=== PATIENT | female | born 1990 | race Caucasian/White ===

== ENCOUNTER → 2019-11-08 06:57 | Outpatient (CLI) | payer BC, SELFPAY ==
[2019-11-08 07:50] LABS: Glucose 75GTT - Fasting 94 mg/dL (70-99)
[2019-11-08 08:00] LABS: Estradiol 66.4 pg/mL; Follicle Stimulating Hormone 3.2 mIU/mL; Prolactin 18.1 ng/mL; T4 Free Direct 0.92 ng/dL (0.76-1.46); Thyroid Stim Hormone (TSH) 4.36 uIU/mL (0.358-3.74)
[2019-11-08 08:18] LABS: T3 Total - Triiodothyronine 1.29 ng/mL (0.6-1.81); Vitamin D,25 Hydroxy 17.7 ng/mL (29.95-100.01)
[2019-11-08 08:25] LABS: Glucose 75GTT - 30 minutes 143 mg/dL (100-160)
[2019-11-08 08:47] LABS: Glucose 75GTT - 60 minutes 187 mg/dL (100-160)
[2019-11-08 09:15] LABS: Insulin 75GTT - Fasting 13.9 mU/L (2.6-37.6)
[2019-11-08 09:15] LABS: Insulin 75GTT - 30 MIN 109.6 mU/L (Not Estab.)
[2019-11-08 09:39] LABS: Insulin 75GTT - 60 min 164.2 mU/L (Not Estab)
[2019-11-08 10:05] LABS: Glucose 75GTT - 120 minutes 133 mg/dL (70-140)
[2019-11-08 12:37] LABS: Insulin 75GTT - 120 min 159.5 mU/L (Not Estab.)
[2019-11-09 10:23] LABS: Progesterone Level 1.08 ng/mL (See Comment)
[2019-11-09 16:22] LABS: Luteinizing Hormone 5.2 mIU/mL
[2019-11-10 17:48] LABS: 17-Hydroxyprogesterone 50 ng/dL (.)
[2019-11-10 17:49] LABS: Thyroglobulin Antibody < 1.0 IU/mL (0.0-0.9); Thyroid Peroxidase AB 8 IU/mL (0-34)
[2019-11-15 10:19] LABS: Anti-Mullerian Hormone,Serum 1.84 ng/mL (.)
== END ==
PROVIDERS: Family Provider Nurse Practitioner Primary Care; PCP Nurse Practitioner Primary Care; Referring Provider Obstetrics & Gynecology; Visit Provider Obstetrics & Gynecology
DX: N91.2 Amenorrhea, unspecified (principal); E03.9 Hypothyroidism, unspecified; N97.9 Female infertility, unspecified; R73.09 Other abnormal glucose
CPT/HCPCS: 36415; 82306; 82533; 82627; 82670; 82951; 82952; 83001; 83002; 83498; 83516; 83525; 83615; 84144; 84146; 84270; 84403; 84439; 84443; 84480; 86376; 86800; 82626

== ENCOUNTER → 2019-11-14 07:52 | Outpatient (CLI) | payer BC, SELFPAY ==
[2019-11-14 08:32] LABS: Estradiol 42.1 pg/mL; Follicle Stimulating Hormone 5.1 mIU/mL
[2019-11-15 09:51] LABS: DHEA Sulfate 241.2 ug/dL (84.8-378.0)
== END ==
LOC: LAB.FUTURE 07:53 → LAB 07:57
PROVIDERS: Family Provider Nurse Practitioner Primary Care; PCP Nurse Practitioner Primary Care; Referring Provider Nurse Practitioner Primary Care; Visit Provider Obstetrics & Gynecology
DX: N91.1 Secondary amenorrhea (principal)
CPT/HCPCS: 36415; 82533; 82627; 82670; 83001; 84403; 82626

== ENCOUNTER → 2019-11-17 11:42 | Outpatient (CLI) | payer BC, SELFPAY ==
--- NOTE | 2019-11-17 11:44 | RAD_ITS ---
STUDY: HYSTEROSALPINGOGRAM. REASON FOR EXAM: Female, 29 years old. INFERTILITY FLUOROSCOPY TIME (if supplied): ( 32 seconds ) minutes/seconds TECHNIQUE: A hysterosalpingogram was performed by the job developer for deaf adults. Imaging was obtained. COMPARISON: None. FINDINGS: The uterus is unremarkable. The left fallopian tube is patent with free spill. The right fallopian tube is not visualized. RAD/Salpingogram IMPRESSION: The left fallopian tube is patent with free spill. Nonvisualization of the right fallopian tube. Electronically Signed: Josue Sommers, at 15:01 EST , Service support ,
== END ==
PROVIDERS: Family Provider Nurse Practitioner Primary Care; PCP Nurse Practitioner Primary Care; Referring Provider Obstetrics & Gynecology; Visit Provider Obstetrics & Gynecology
DX: N97.9 Female infertility, unspecified (principal)
CPT/HCPCS: 58340; 74740; Q9967

== ENCOUNTER → 2019-12-13 11:46 | Outpatient (CLI) | payer BC, SELFPAY | PROVIDERS: PCP Nurse Practitioner Primary Care; Referring Provider Obstetrics & Gynecology; Visit Provider Obstetrics & Gynecology | DX: Z12.4 Encounter for screening for malignant neoplasm of cervix (principal) ==

== ENCOUNTER → 2020-09-03 10:32 | Outpatient (CLI) | payer BC, SELFPAY | PROVIDERS: PCP Nurse Practitioner Primary Care; Referring Provider Obstetrics & Gynecology; Visit Provider Obstetrics & Gynecology | DX: Z20.828 Contact with and (suspected) exposure to other viral communicable diseases (principal) | CPT/HCPCS: 87635; C9803; U0003 ==

== ENCOUNTER → 2020-09-12 17:08 | Outpatient (CLI) | payer BC, SELFPAY ==
[2020-09-12 17:51] LABS: Color, Urine Yellow (Yellow); Glucose, Dipstick Normal (Normal); Ketone-Dipstick Negative (Negative); Leukocyte Esterase-Dipstick 100 /ul (Negative); Nitrite-Dipstick Negative (Negative); Occult Blood-Urine Negative /ul (Negative); Protein-Dipstick 15 mg/dl (Negative); Urine Bilirubin Dipstick Negative (Negative); Urine Clarity Sl. Cloudy (Clear); Urine Urobilinogen Normal (Normal)
[2020-09-12 17:52] LABS: Absolute Lymphocyte Count 2.18 X10^3/uL (0.83-4.51); Absolute Neutrophil Count 6.1 X10^3/uL (2.0-7.7); Basophil# 0.04 X10^3/uL; Basophil% 0.4 % (0-1); Eosinophil# 0.14 X10^3/uL; Eosinophils% 1.5 % (0-5); Hematocrit 40.8 % (37-47); Hemoglobin 13.5 g/dL (12.0-15.0); Lymphocyte # 2.18 X10^3/ul (4.0); Mean Corp Hgb Conc 33.1 g/dL (32-36); Mean Corpuscular Hgb 29.7 pg (27.0-32.0); Mean Corpuscular Volume 89.9 fL (81-99); Mean Platelet Vol. 10.4 fl (6.2-12.0); Monocyte# 0.54 X10^3/uL; Monocyte% 5.9 % (0-10); NRBC Flagged by Analyzer 0 % (0-5); Neutrophil # 6.14 X10^3/uL (2.7-7.7); Neutrophil % 67.8 % (47-70); Platelet Count 332 K/mm3 (150-450); RBC Distribution Width CV 11.7 % (11.6-14.6); RBC Distribution Width SD 37.9 fl (35.1-43.9); Red Blood Count 4.54 M/mm3 (4.2-5.4); White Blood Count 9.1 K/mm3 (4.4-11.0)
[2020-09-12 18:14] LABS: Hemoglobin A1c 5.2 % (3.8-5.6)
[2020-09-12 18:33] LABS: Amphetamine Urine VISTA NEGATIVE (<1000 ng/mL); Barbiturate Urine VISTA NEGATIVE (< 200 ng/mL); Benzodiazepine Urine VISTA NEGATIVE (< 200 ng/mL); Cocaine Urine VISTA NEGATIVE (< 300 ng/mL); Ecstacy Urine VISTA POSITIVE (< 500 ng/mL); Methadone Urine VISTA NEGATIVE (< 300 ng/mL); PCP Urine VISTA NEGATIVE (< 25 ng/mL); THC Urine VISTA NEGATIVE (< 50 ng/mL); Vista UDS pH Range 5
[2020-09-12 19:06] LABS: Free T3 2.4 pg/mL (2.18-3.98); T4 Free Direct 1.07 ng/dL (0.76-1.46); Thyroid Stim Hormone (TSH) 1.86 uIU/mL (0.358-3.74)
[2020-09-13 01:21] LABS: Prenatal RPR NONREACTIVE (NONREACTIVE)
[2020-09-13 11:13] LABS: HIV - WCH Non-Reactive (Nonreactive); Hepatitis B Surface Antigen Non-Reactive (Nonreactive); Hepatitis C Antibody Non-Reactive (Nonreactive); Progesterone Level 11.94 ng/mL (See Comment); Rubella IgG Reactive (Nonreactive); Vitamin D,25 Hydroxy 21.1 ng/mL
[2020-09-13 16:46] LABS: Estradiol 481.1 pg/mL
[2020-09-13 16:53] LABS: hCG Titer Quant., Serum 24742 mIU/mL (1-3)
[2020-09-15 03:06] LABS: Chlamydia By Nucleic Acid AMP Negative (Negative)
[2020-09-17 04:35] LABS: Gonococcus By Nucleic Acid AMP Negative (Negative)
== END ==
PROVIDERS: PCP Nurse Practitioner Primary Care; Visit Provider Obstetrics & Gynecology
DX: Z11.3 Encounter for screening for infections with a predominantly sexual mode of transmission (principal); O26.891 Other specified pregnancy related conditions, first trimester; E55.9 Vitamin D deficiency, unspecified; Z3A.00 Weeks of gestation of pregnancy not specified
CPT/HCPCS: 36415; 80307; 81002; 82306; 82670; 83036; 84144; 84439; 84443; 84481; 84702; 85025; 86703; 86762; 86803; 87340; 87491; 87591

== ENCOUNTER → 2020-11-14 16:42 | Outpatient (CLI) | payer BC, SELFPAY ==
[2020-11-22 14:07] LABS: CF, Screen Comment: (.)
== END ==
PROVIDERS: PCP Nurse Practitioner Primary Care; Visit Provider Obstetrics & Gynecology
DX: Z34.82 Encounter for supervision of other normal pregnancy, second trimester (principal)
CPT/HCPCS: 36415; 81220

== ENCOUNTER → 2021-01-21 10:27 | Outpatient (CLI) | payer BC, SELFPAY ==
--- NOTE | 2021-01-21 10:35 | US_ITS ---
STUDY: ULTRASOUND BREAST - RIGHT REASON FOR EXAM: Female, 31 years old. Palpable lump in the right axillary region of the breast. TECHNIQUE: Axial and longitudinal images of the RIGHT breast were performed with a high resolution ultrasound transducer. # OF IMAGES: 54 COMPARISON: None. FINDINGS: RIGHT Breast: The right axilla in the tail of the right breast was examined by ultrasound. No sonographic abnormality is seen. US/Breast Limited Unilateral IMPRESSION: No sonographic abnormality is seen. ASSESSMENT CATEGORY: BIRADS Category 1: Negative. A letter regarding these results will be sent to the patient by the facility within 30 days. Electronically Signed: Josue Sommers MD at 12:12 EDT , Service support ,
== END ==
PROVIDERS: PCP Nurse Practitioner Primary Care; Referring Provider Student in an Organized Health Care Education/Training Program; Visit Provider Student in an Organized Health Care Education/Training Program
DX: O26.892 Other specified pregnancy related conditions, second trimester (principal); N63.31 Unspecified lump in axillary tail of the right breast; Z3A.24 24 weeks gestation of pregnancy
CPT/HCPCS: 76642

== ENCOUNTER → 2021-02-12 15:47 | Outpatient (CLI) | payer BC, SELFPAY ==
[2021-02-12 16:11] LABS: Hematocrit 35.6 % (37-47); Hemoglobin 12.1 g/dL (12.0-15.0); Mean Corpuscular Hgb 30.3 pg (27.0-32.0); Mean Platelet Vol. 10.3 fl (6.2-12.0); Platelet Count 256 K/mm3 (150-450); RBC Distribution Width CV 13.2 % (11.6-14.6); RBC Distribution Width SD 42.6 fl (35.1-43.9); White Blood Count 9.3 K/mm3 (4.4-11.0)
[2021-02-12 16:43] LABS: Glucose Challenge Gest 1H 50g 107 mg/dL (70-140); T4 Free Direct 0.86 ng/dL (0.76-1.46); Thyroid Stim Hormone (TSH) 1.32 uIU/mL (0.358-3.74)
== END ==
PROVIDERS: PCP Nurse Practitioner Primary Care; Visit Provider Student in an Organized Health Care Education/Training Program
DX: Z34.83 Encounter for supervision of other normal pregnancy, third trimester (principal)
CPT/HCPCS: 36415; 82950; 84439; 84443; 85027

== ENCOUNTER → 2021-04-10 12:29 | Outpatient (CLI) | payer BC, SELFPAY | PROVIDERS: PCP Nurse Practitioner Primary Care; Visit Provider Obstetrics & Gynecology | DX: Z36.85 Encounter for antenatal screening for Streptococcus B (principal) | CPT/HCPCS: 87081 ==

== ENCOUNTER 2021-05-06 07:20 | Inpatient (IN) | payer BC, SELFPAY ==
[2021-05-06] VITALS (52 sets, daily range): BP systolic 106–164; BP diastolic 54–89; PULSE 51–114; TEMP 35.7–37.4; O2SAT 94–100; BMI 39.1
[2021-05-06] MEDS: Lactated Ringers 1,000 ML 50 ML IV (07:35)
[2021-05-06 07:45] LABS: Absolute Lymphocyte Count 1.54 X10^3/uL (0.83-4.51); Basophil# 0.02 X10^3/uL; Basophil% 0.2 % (0-1); Eosinophil# 0.05 X10^3/uL; Eosinophils% 0.5 % (0-5); Hemoglobin 13.1 g/dL (12.0-15.0); Lymphocyte # 1.54 X10^3/ul (0.83-4.51); Lymphocyte % 16.8 % (19-41); Mean Corp Hgb Conc 33.6 g/dL (32-36); Mean Corpuscular Hgb 29.4 pg (27.0-32.0); Mean Corpuscular Volume 87.4 fL (81-99); Mean Platelet Vol. 10.8 fl (6.2-12.0); Monocyte# 0.54 X10^3/uL; Monocyte% 5.9 % (0-10); NRBC Flagged by Analyzer 0 % (0-5); Neutrophil # 6.97 X10^3/uL (2.7-7.7); Neutrophil % 76.2 % (47-70); Platelet Count 253 K/mm3 (150-450); RBC Distribution Width CV 12.9 % (11.6-14.6); Red Blood Count 4.46 M/mm3 (4.2-5.4); White Blood Count 9.2 K/mm3 (4.4-11.0)
--- NOTE | 2021-05-06 07:51 | PCM.PN.BLA ---
Progress Note ACOG ANTEPARTUM RECORD - HISTORY AND PHYSICAL (05/06/2021) Name: MELI HICKS History of this : This is a 31 year old who presents at 40 wks + 1 days gestation. OB Physician: Jillian Flood MD [place]'s Physician: UNDECIDED ...................................................................... : 1990 Age: 31 Address: [address] [place] [address] Phone: H) [phone]) [phone] Insurance Carrier: [employer] [facility] [id number] Emergency Contact: JOSE MANUEL HICKS [phone] ...................................................................... Final WU: 05/05/21 By Ultrasound: 10 weeks 3 days PARITY: (G-Total Pregnancies P-Fullterm,Premature,Induced AB,Spont AB, Ectopics, Multiple,Living) WU CONFIRMATION: By LMP: 07/14/20 Initial Exam: 05/05/21 By First Ultrasound Exam: 05/04/21 Final WU: 05/05/21 OB PROBLEM LIST: 10/2020 - GI US - biliary sludge and gallstone Allergic to Zyrtec and Cortisone cream ( rash/hives) Anxiety with past treatment. EPDS on 09/12/2020 = 8. Breast feeding and epidural planned; office childbirth and breast feeding classes enc Environmental allergies Hx of UTI's Hypothyroidism Intermittent auscultation Low Vitamin D - rpt at 28wga Wants to have genetic and carrier screens drawn ALLERGIES: Hydrocortisone Hives and/or rash Zyrtec Rash MEDICATIONS: aspirin 81 mg chewable tablet 1 PO QD Claritin 10 mg tablet 1daily PRN levothyroxine 50 mcg tablet One pill by mouth once a day metformin ER 750 mg tablet,extended release 24 hr 2 tabs PO once daily Formula-DHA 28 mg-800 mcg- 200 mg capsule 1 PO QD Tylenol Extra Strength 500 mg tablet 1 PO QD PRN Vitamin C 500 mg tablet 1 tab po daily Vitamin D3 125 mcg (5,000 unit) tablet 1 tab po daily zinc 50 mg tablet 1 PO QD SOCIAL HISTORY: Smoking - used to smoke but quit and 2011 Alcohol Use - denies drinking Diet - needs improvement Lifestyle - moderate stress lifestyle and Exercise - regular 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 Drug Use - denies use of street drugs Sexual Activity - Residence - lives with Place of - [place], [place] Spouse-Sig Other Name - Jose Manuel Spouse-Sig Other Occupation - Diana/[employer] Spouse-Sig Other Phone No - [phone] PRIOR DELIVERY HISTORY DEL DATE GEST LAB WT LB WT OZ TYPE ANES LABOR TX ANTEPARTUM FLOW CHART VISIT GE RTC FU F F FL U U DATE WK MD WKS HT PN HR M SS BP ED WT FL GL D EF ST __ ____ ___ __ __ ___ __ __ __ ___ __ __ __ ___ __ 30 Apr 39 SHM 1 39 V +_ + 120/82 sl 215 tr ne Apr 38 SHM 1 38 V + + 114/82 sl 214 - - Apr 37 SHM 1 37 V + + 130/82 sl 215 tr - 09 Apr 36 SHM 1 36 V + + 110/72 1+ 210 - - 29 March 34 SHM 2 34 ? + + 110/78 sl 209 tr - 15 March 32 SHM 2 32 V + + 130/78 sl 207 tr - 27 Jan 30 CM 2 30 + + 114/80 1+ 205 - - Jan 28 CM 2 26 + + 108/66 sl 203 tr ne 16 Dec 24 CM 4 24 + + 118/72 0 196 - - Dec 22 JMW 4 20 + + 126/74 0 197 - - Nov 16 SHM 4 16 + ? 110/70 0 193 - - Oct 11 SHM 5 + US 100/64 0 194 - - ANTEPARTUM NOTE(S): May 01 2021: Apr 24 2021: groin pain, questions Apr 19 2021: see note Apr 10 2021: see note Mar 29 2021: hip pain Mar 15 2021: see note Feb 26 2021: Feb 12 2021: GCT/labs today Jan 15 2021: Dec 19 2020: Sono Today,Good FM Nov 14 2020: Oct 10 2020: COMPREHENSIVE ANTEPARTUM NOTE(S): May 01 2021: Meli is here for PNV. Although tired she states she is feeling pretty good. Having good FM. Continues to wear support stockings. No edema in hands but noticed slight in lower legs. Over last few days has had some ctx that seemed stronger than BH. No LOF or discharge. Urine tr/neg. LSS Apr 24 2021: Meli is here for a PNV at 38 weeks. Good FM. SL edema in ankles and feet, consistent use of compression socks. Pt reports occasional ctx's, notices them mostly at night before bed. Groin pain w/ standing up. Denies back pain/pelvic pressure. Would like to go over birthing plan, copies given. Interested in discussing vitamin regimen for , plans to exclusively breast feed baby. Declin Apr 24 2021: plan reviewed and discussed. Apr 19 2021: Meli is here for visit. More uncomfortable, groin pain occ. Reviewed FM, SROM, and labor. GBS negative. LMT Apr 19 2021: Had her baby shower last weekend. she is uncomfortable but doing well overall. Reviewed neg GBS. Discussed EFM vs. intermittent ausculatation - r/b each, pt desires intermittent auscultation. Apr 15 2021: H taken to OB. tkg Apr 10 2021: Meli reports that she is more uncomfortable, edema by the end of the day, achy in hip area, and had a couple episodes of diarrhea in the last couple days. No other sx noted. GBS today, LARC declined. Reviewed FM, SROM, and labor. LMT Apr 10 2021: Suspect OP, check position at next visit. Recommend Spinning Babies exercises. GBS obtained, reviewed indications. Mar 15 2021: Meli is here for visit. Reports compression stockings have helped with edema and got a spacer for her wedding ring. She plans Tdap tomorrow after childbirth class. Reviewed PTL and FM. Reports that she had a pinch injury in R leg with some residual numbness for about a day, just reporting this as now is resolved. LMT Mar 15 2021: PTL, ROM, FM precautions. Reviewed support persons in labor. Mother with assist x 1 week at home, then the 2 weeks after that. Has [place] for infant and room ready. Plans , completed class. Feb 26 2021: Meli is here for visit at 30.2w. Baby active. Shins robin noted to have 1+ edema. None in fingers- took wedding band off as it was loose. Sits all day at work. Tries to move around some and has ordered support hose. VIVIEN. Feb 26 2021: 30/2w visit. Discussed compression socks, weight gain in . Subclinical hypothyroidism. F/u 2w CM Feb 12 2021: Meli is here for PNV. GCT/labs today including thyroid studies. Feeling uncomfortable. Having good FM. Slight edema noted in ankles. Urine tr/neg. LSS Feb 12 2021: 28/2w visit. DIscussed TDap COVID vaccine. Subclinical hypothyroidism - labs drawn. Allergies - discussed rhinitis. Will change med. Cannot take zyrtec or mary. Aware that specific studies have not been done on aternative. F/u 2w. CM Jan 15 2021: Glucola bottle and instructions given to be drawn next visit. Reminded about TDap vaccine -- she would like to discuss further w/Dr. Gianna Paul. Good FM. Overall feeling tired every day. 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 Concerned w/ a webb mccormack sized lump R upper inner Axilla, which she notes every day in the shower, other times, she can Jan 15 2021: 24/2w visit. Recheck thyroid labs with glucola. Axillary nodule - nonpalpable but more noticeable to pt. Will get axilla US. F/u 4w. CM Nov 28 2020: SMA mutation and CF carrier screening neg Nov 14 2020: Meli is her for 15 + 3 PNV. Reports she may have had FM but not sure. No edema present today. She c/o hip pain that wakes her up at night and when exercising. She took Tylenol extra strength last night that helped. Also c/o upper abdominal pain, US showed gallstones. She is wanting to know if constipation could cause her upper abdominal pain. States she has small circular pink suzanne on both breas Nov 14 2020: Discussed aneuploidy screening r/b/limitations, as well as CF, SMA carrier screening and MSAFP. Will obtain all today. Discussed movement, musculoskeletal discomforts of and exercises to ameliorate these as pt c/o hip flexor discomfort and pain. post acute care nurse ok. Pt notes Sneak Esteban reveals a boy. Discussed circ. Pt considering. Oct 11 2020: TELEHEALTH NOB VISIT, 55 MINUTE DURATION. Meli is a 30 year old with an WU of 05/05/2021, current GA is 10 w 4 d. She resides with her , Jose Manuel, and she states that they are both happy with the . She plans to deliver at [facility] with a likely epidural, and she will breast feed. Office breast feeding and childbirth classes discussed and encouraged. 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 She had US today. Reports that she is tired and doing fine. No edema present today. She c/o breast tenderness to where she has to wear a bra to bed. She has constipation and bloating but does not use anything for it as it passes in a few days. She has motion sickness and has to drive when riding in the car. Expressed interest in gender testing. No other com Oct 10 2020: Atiya is here with her Jose Manuel. Discussed travel in . Recommend maternity or nursing bra for reduce breast pain associated with movement and tenderness. Reviewed labs. Maintain current dose of Synthroid. Low Vitamin D, pt started 5000 IU daily D3. Will continue. Discussed COVID19 prevention strategies and limitations of current studies in . Reviewed current trends REVIEW OF SYSTEMS: GENERAL - Denies fever, or chills SKIN - Denies rash, new skin lesions, or change in moles EYES - Denies blurred vision, or change in visual acuity EARS - Denies ear pain, or difficulty hearing NOSE - Denies nasal congestion, discharge, or bleeding MOUTH - Denies sore throat, or difficulty swallowing NECK - Denies pain or swelling RESPIRATORY - Denies shortness of breath, cough, wheezing CARDIOVASCULAR - Denies palpitations, chest pain, orthopnea, PND, peripheral edema, syncope or claudication GASTROINTESTINAL - Denies nausea, vomiting, diarrhea, constipation, Denies abdominal pain, melena and or bright red blood GENITOURINARY - Denies dysuria, frequency of urination, urgency, or hesitancy MUSCULOSKELETAL - Denies joint or muscle pain, or back pain NEUROLOGICAL - Denies localized numbness, weakness, or tingling PSYCHIATRIC - Denies depression, anxiety, substance abuse or suicide attempts ENDOCRINE - Denies heat or cold intolerance, weight loss or gain, increasing thirst HEMATO-IMMUNOLOGIC - Denies easy bruising, bleeding, oral ulcerations or recurrent infections GENETICS SCREENING: Age 35+ years: No Thalassemia: No Neural Tube Defect: No Down Syndrome: No KALINA-SACHS: No Sickle Cell Disease: No Hemophilia: No Musc. Dystrophy: No Cystic Fibrosis: No-declines screening Paulette Chorea: No Mental Retardation: No Fragile X: No Other genetic: No Other defects: No SABs/still births: No Drugs since LMP: No INFECTION HISTORY: High risk AIDS: No High risk Hepatitis: No Exposed to TB: No Exposed to Herpes: No Rash/viral illness since LMP: No History of STD: No MENSTRUAL HISTORY: *Menses Amount/Duration: 4-5 DAYSMenses Regularity: IrregularFrequency: 25-45Menarche (Age Onset): 12* PAST SUMMARY: PARITY: 1. Total Pregnancies............ 1 2. Full Term Pregnancies........ 0 3. Premature.................... 0 4. Abortions - Induced.......... 0 5. Abortions - Spontaneous...... 0 6. Ectopics..................... 0 7. Multiple Births.............. 0 8. Living Children.............. 0 PHYSICAL EXAMINATION General Appearence: 31 yo female in no acute distress Vital Signs: AF, VSS Heart: RRR without rubs or gallops Lungs: CTA x 2 Breasts: deferred Abdomen: gravid Pelvis: Cervix: 4/70/-2 per RN exam Presentation: cephalic Fetus: Size: AGA Movement: present Heart: 120, moderate variabiltiy, + accelerations, no decelerations TOCO 3/10 min Impression /Plan: 40 wks + 1 days intrauterine in labor, Cat I FHR Expectant management
[2021-05-06] MEDS: fentaNYL 100 MCG/2 ML Ampul IV ×3 (09:43→14:20)
[2021-05-06] MEDS: 0.9% Saline Lock 10 ML Syringe IV ×4 (09:44→15:06)
--- NOTE | 2021-05-06 11:15 | PCM.PN.BLA ---
Progress Note Subjective: Patient seen and examined, uncomfortable with contractions. Desires to go natural. Otherwise asymptomatic and doing well. Physical exam: Vital signs: Blood pressure 132/75 pulse of 67 General: Mild distress with contractions HEENT: Normocephaly atraumatic Cardiac/respiratory: No use of accessory muscles, nonlabored breathing Abdomen: Gravid, nontender Pelvic exam: Cervical exam 6 cm, 70% effaced, -1 station Extremities: No peripheral edema normal peripheral pulses Psych: Normal affect normal demeanor nonpressured speech Assessment plan: 31 old G1, P0 at 40 weeks and 1 day arrived in labor, will continue expectant management. Discussed AROM, at this time patient would like expectant management but considering.
--- NOTE | 2021-05-06 11:39 | PCM.PN.BLA ---
Progress Note Subjective: Patient still uncomfortable with contractions. Desires to go natural. Physical exam: General: Mild distress with contractions HEENT: Normocephalic atraumatic Cardiac/respiratory: No use of accessory muscles nonlabored breathing Pelvic exam: Cervical exam unchanged AROM for blood-tinged fluid Extremities: No peripheral edema normal peripheral pulses Psych: Normal affect normal demeanor nonpressured speech Assessment plan: Patient seen and examined uncomfortable with contractions desires to go natural. AROM for blood-tinged fluid. We will continue expectant management.
[2021-05-06] MEDS: Lactated Ringers 500 ML 999 ML IV ×2 (15:06→16:11)
[2021-05-06] MEDS: fentaNYL-bupivacaine (epidural) 100 ML BAG EPIDURAL ×2 (16:12→21:34)
[2021-05-06] MEDS: Oxytocin 30 units/NS 500 ml 30 UNITS/500 ML IV.SOLN IV (18:06)
[2021-05-06] MEDS: Lactated Ringers 1,000 ML 200 ML IV (21:34)
[2021-05-06] MEDS: Oxytocin 30 units/NS 500 ml 30 UNITS/500 ML IV.SOLN 334 UNITS IV (23:08)
--- NOTE | 2021-05-06 23:24 | EX.PCM.OBRPT ---
Vaginal Delivery Findings Description of Procedure: Normal spontaneous vaginal delivery of a viable male , vertex BENJAMÍN. Head and shoulders delivered with ease. Thick meconium, baby handed to treasury management sales consultant. Placenta was delivered via cord traction and fundal massage. Second-degree midline perineal laceration noted and repaired in typical fashion. EBL 250 cc Apgars 7/9
[2021-05-07] VITALS (16 sets, daily range): BP systolic 88–121; BP diastolic 42–81; PULSE 73–86; RESP 16–18; TEMP 36.2–37.2; O2SAT 95–97
[2021-05-07] MEDS: Ibuprofen 600 MG Tablet PO ×3 (05:50→20:31)
[2021-05-07] MEDS: Levothyroxine 50 MCG Tablet PO (05:59)
--- NOTE | 2021-05-07 08:02 | PCM.PN.OB ---
Subjective Subjective No overnight complaints. Pain well controlled. Objective Data Objective Data Vital Signs: Vital Signs Temp Pulse Resp BP Pulse Ox 99.0 F 77 16 115/63 95 05/07/21 05:30 05/07/21 05:30 05/07/21 05:30 05/07/21 05:30 05/07/21 01:20 Oxygen Delivery Method Room Air Weight: 221 lb Body Mass Index (BMI) 39.1 Intake & Output: Intake and Output for Last 24 Hours 05/05/21 05/06/21 05/07/21 23:59 23:59 23:59 Intake Total 3811.60 / 3811.60 327.43 / 327.43 Output Total 750 / 750 1800 / 1800 Balance 3061.60 / 3061.60 -1472.57 / -1472.57 Lab / Micro Data Result Diagrams: 05/06/21 07:35 Labs: Laboratory Results - last 24 hr 05/06/21 07:35 Blood Type A POSITIVE Antibody Screen NEGATIVE Micro: Microbiology 05/06/21 07:55 Mucosa - Nose SARS-CoV-2 Antigen (Rapid) - Final Physical Exam Const alert, oriented x3, no apparent distress and average body habitus HEENT normocephalic and moist oral mucous membranes Head and Scalp: atraumatic Face and Sinus: normal facial exam Neck full ROM Resp normal respiratory effort, no retractions and no use of accessory muscles GI normal to inspection, nondistended, normoactive bowel sounds GI Narrative: Uterus firm and below umbilicus Extremity normal to inspection, full ROM and no clubbing, cyanosis or edema Skin no rashes or lesions noted Psych mental status grossly normal, affect normal, speech normal and activity/motor behavior normal Assessment & Plan (1) : PLAN: day 1 status post . Breast-feeding, to see consultants. Baby with hypoglycemia, to see surveying or spatial science technician. Likely discharge home tomorrow
[2021-05-07] MEDS: Acetaminophen 500 MG Tablet 1000 MG PO (22:37)
[2021-05-08] MEDS: Ibuprofen 600 MG Tablet PO ×2 (05:14→12:43)
[2021-05-08] MEDS: Levothyroxine 50 MCG Tablet PO (05:14)
[2021-05-08 05:20] VITALS: BP 106/71; PULSE 62; RESP 16; TEMP 36.6
--- NOTE | 2021-05-08 06:50 | PCM.PN.OB ---
Subjective Subjective No issues overnight. Patient is out of bed and ambulating and voiding without difficulty. She had a bowel movement. Reports soreness at site of perineal repair. She is breast-feeding and using the nipple shield. Denies heavy lochia. Objective Data Objective Data Vital Signs: Vital Signs Temp Pulse Resp BP Pulse Ox 97.9 F 62 16 106/71 95 05/08/21 05:20 05/08/21 05:20 05/08/21 05:20 05/08/21 05:20 05/07/21 01:20 Oxygen Delivery Method Room Air Weight: 100.244 kg Body Mass Index (BMI) 39.1 Intake & Output: Intake and Output for Last 24 Hours 05/06/21 05/07/21 05/08/21 23:59 23:59 23:59 Intake Total 3811.60 / 3811.60 327.43 / 327.43 Output Total 750 / 750 1800 / 1800 Balance 3061.60 / 3061.60 -1472.57 / -1472.57 Lab / Micro Data Result Diagrams: 05/06/21 07:35 Micro: Microbiology 05/06/21 07:55 Mucosa - Nose SARS-CoV-2 Antigen (Rapid) - Final Physical Exam Const alert, oriented x3 and no apparent distress Resp normal respiratory effort and normal air movement Cardio regular rate, regular rhythm, S1 normal heart sound and S2 normal heart sound Uterus Palpation: uterus fundus firm and other OB fundus nontender Extremity no calf tenderness Extremity Narrative: Trace lower extremity edema, patient maintains compression stockings. Neuro oriented x3 Assessment & Plan (1) (spontaneous vaginal delivery): COMMENT: day #2 PLAN: A positive, rubella immune, RPR nonreactive, hep B surface antigen negative, HIV negative, hep CV negative Breast-feeding Routine care Plan for DC later today
--- NOTE | 2021-05-08 06:55 | DCINST_ITS ---
Discharge Instructions Diet Discharge Diet: No restrictions Activity Discharge Activity: Return to Normal Activity May resume sexual activity in: 4-6 weeks Dressing / Incision Call your doctor if you observe: Using more than 1 pad per hour, Shortness of breath, Chest pain, Calf discomfort, Uncontrolled pain and - (Persistent or severe headache) Follow Up Care Please Follow Up With: Jillian Flood MD When: 3 weeks for telehealth follow up 6 weeks for visit Test Results: Test results from this visit will be discussed in further detail at your follow-up appointment, if applicable. Discharge Plan Admission Admit Date/Time: 05/06/21 07:20 Primary Reason for Your Visit: Vaginal delivery Attending Provider: Jillian Gramajo Primary Care Provider: Candelaria Petit NP Instructions Patient Instructions: After a Vaginal , Incision Care After Vaginal , Understanding Depression Additional Instructions / Restrictions: Avoid sitting on donut shaped cushions. Discharge Orders/Prescriptions Prescriptions: New ibuprofen 600 mg Tablet 600 mg PO Q8H PRN PRN (Reason: Pain) Qty: 30 RF: 0 Continued levothyroxine 50 mcg Tablet 50 mcg PO DAILY RF: 0 Complete 14 mg iron- 400 mcg Tablet PO DAILY RF: 0 ascorbic acid (vitamin C) [Vitamin C] 500 mg Tablet 500 mg PO DAILY RF: 0 ergocalciferol (vitamin D2) 25,000 unit Capsule 5,000 unit PO DAILY RF: 0 zinc 50 mg Capsule 50 mg PO DAILY RF: 0 Claritin-D 12 Hour 5-120 mg Tablet Extended Release 12 Hr 2 tab PO Q12H RF: 0 Discontinued metformin 1,000 mg Tablet Extended Release 24hr 1,500 mg PO DAILY RF: 0 aspirin 81 mg Tablet 81 mg PO DAILY RF: 0 Referrals / Follow Up: Candelaria Petit NP, [facility] [Primary Care Provider] - Disposition Disposition (needs filled in before D/C Order can be placed): Home, Self Care
[2021-05-08 08:20] VITALS: BP 114/62; PULSE 57; RESP 16; TEMP 36.6
[2021-05-08] MEDS: Acetaminophen 500 MG Tablet 1000 MG PO (09:23)
[2021-05-08 14:15] VITALS: BP 137/70; PULSE 73; RESP 16; TEMP 36.7
--- NOTE | 2021-05-15 16:48 | NURSING ---
left voicemail for follow up call no answer.
== END 2021-05-08 16:15 | disposition home or self-care (01) | DRG 807 ==
LOC: WPOUT 07:30 → WP 07:30
PROVIDERS: Admitting Provider Obstetrics & Gynecology; PCP Nurse Practitioner Primary Care; Referring Provider Obstetrics & Gynecology; Visit Provider Obstetrics & Gynecology
DX: O77.0 Labor and delivery complicated by meconium in amniotic fluid (principal); Z37.0 Single live birth; O70.1 Second degree perineal laceration during delivery; Z3A.40 40 weeks gestation of pregnancy
CPT/HCPCS: 59025; 59050; 76815; 85025; 86850; 86900; 86901; 87426; 99218; J7120; A4216; G0378

== ENCOUNTER → 2021-05-16 16:43 | Outpatient (CLI) | payer BC, SELFPAY ==
[2021-05-06 06:42] VITALS: BMI 39.1
== END ==
PROVIDERS: PCP Nurse Practitioner Primary Care; Referring Provider Obstetrics & Gynecology; Visit Provider Obstetrics & Gynecology
DX: R30.0 Dysuria (principal)
CPT/HCPCS: 87086; 87088

== ENCOUNTER → 2021-09-10 10:52 | Outpatient (CLI) | payer BC, SELFPAY ==
[2021-09-10 11:28] LABS: Hemoglobin A1c 5.1 % (3.8-5.6)
[2021-09-10 11:53] LABS: Insulin 8.3 mU/L (2.6-37.6)
[2021-09-10 11:57] LABS: Free T3 2.8 pg/mL (2.18-3.98); Glucose 88 mg/dL (74-106); T4 Free Direct 0.83 ng/dL (0.76-1.46); Thyroid Stim Hormone (TSH) 2.03 uIU/mL (0.358-3.74)
== END ==
PROVIDERS: PCP Nurse Practitioner Primary Care; Visit Provider Obstetrics & Gynecology
DX: E03.9 Hypothyroidism, unspecified (principal); E55.9 Vitamin D deficiency, unspecified; R73.09 Other abnormal glucose
CPT/HCPCS: 36415; 82306; 82947; 83036; 83525; 84439; 84443; 84481

== ENCOUNTER → 2021-09-20 10:37 | Outpatient (CLI) | payer BC, SELFPAY ==
[2021-09-20 11:54] LABS: ALB/GLOB Ratio 0.9 RATIO (0.9-2.4); AST(SGOT) 169 U/L (15-37); Alanine Aminotransfer ALT/SGPT 525 U/L (13-56); Albumin, Serum 3.7 g/dL (3.2-5.0); Alkaline Phosphatase 368 U/L (45-117); Anion Gap 6 (5-15); BUN 8 mg/dL (7-18); BUN/Creat Ratio 10.7 RATIO (10-20); Calcium,Total 9.7 mg/dL (8.5-10.1); Chloride 109 mmol/L (98-107); Creatinine, Serum 0.75 mg/dL (0.55-1.02); EST Glomerular Filtration Rate 96 mL/min (>60); Est Glom Filt Rate - Afr Amer 116 mL/min (>60); Glucose 104 mg/dL (74-106); Potassium 3.8 mmol/L (3.5-5.1); Protein, Total 7.7 g/dL (6.4-8.2); Sodium Level 142 mmol/L (136-145)
== END ==
PROVIDERS: PCP Nurse Practitioner Primary Care
DX: R10.9 Unspecified abdominal pain (principal); E66.9 Obesity, unspecified; K80.10 Calculus of gallbladder with chronic cholecystitis without obstruction; R74.01 Elevation of levels of liver transaminase levels
CPT/HCPCS: 36415; 80053

== ENCOUNTER → 2022-05-23 | Outpatient (CLI) | payer BC, SELFPAY ==
[2022-05-23 12:51] LABS: Free T3 2.4 pg/mL (2.18-3.98); T4 Free Direct 0.83 ng/dL (0.76-1.46); Thyroid Stim Hormone (TSH) 2.64 uIU/mL (0.358-3.74)
== END | disposition home or self-care (01) ==
LOC: WOBLAB 11:04
PROVIDERS: PCP Nurse Practitioner Primary Care; Visit Provider Student in an Organized Health Care Education/Training Program
DX: N91.1 Secondary amenorrhea (principal)
CPT/HCPCS: 36415; 84439; 84443; 84481

== ENCOUNTER → 2022-11-26 | Outpatient (CLI) | payer BC, SELFPAY ==
[2022-12-05 21:25] LABS: HPV APTIMA, High Risk Negative (Negative)
== END | disposition home or self-care (01) ==
PROVIDERS: PCP Nurse Practitioner Primary Care; Visit Provider Student in an Organized Health Care Education/Training Program
DX: Z01.419 Encounter for gynecological examination (general) (routine) without abnormal findings (principal); Z11.4 Encounter for screening for human immunodeficiency virus [HIV]
CPT/HCPCS: 87624; 88175; G0145

== ENCOUNTER → 2022-12-30 | Outpatient (CLI) | payer BC, SELFPAY ==
[2022-12-30 12:28] LABS: Absolute Lymphocyte Count 1.75 X10^3/uL (0.83-4.51); Absolute Neutrophil Count 4.6 X10^3/uL (2.0-7.7); Basophil# 0.03 X10^3/uL; Basophil% 0.4 % (0-1); Eosinophil# 0.13 X10^3/uL; Eosinophils% 1.9 % (0-5); Hematocrit 39.1 % (37-47); Hemoglobin 12.9 g/dL (12.0-15.0); Lymphocyte # 1.75 X10^3/ul (0.83-4.51); Mean Corpuscular Hgb 29.8 pg (27.0-32.0); Mean Corpuscular Volume 90.3 fL (81-99); Mean Platelet Vol. 10.9 fl (6.2-12.0); Monocyte# 0.48 X10^3/uL; Monocyte% 6.9 % (0-10); NRBC Flagged by Analyzer 0 % (0-5); Neutrophil # 4.59 X10^3/uL (2.7-7.7); Neutrophil % 65.5 % (47-70); Platelet Count 269 K/mm3 (150-450); RBC Distribution Width SD 39.7 fl (35.1-43.9); Red Blood Count 4.33 M/mm3 (4.2-5.4)
[2022-12-30 13:00] LABS: HIV - WCH Non-Reactive (Nonreactive); Hepatitis B Surface Antigen Non-Reactive (Nonreactive); Hepatitis C Antibody Non-Reactive (Nonreactive); Rubella IgG Reactive (Nonreactive); Syphilis Antibodies Non-reactive
[2022-12-31 19:50] LABS: V-Zoster IgG (Immunity) 3961 index (Immune >165)
== END | disposition home or self-care (01) ==
LOC: WOBLAB 10:47
PROVIDERS: PCP Nurse Practitioner Primary Care; Visit Provider Student in an Organized Health Care Education/Training Program
DX: Z34.81 Encounter for supervision of other normal pregnancy, first trimester (principal)
CPT/HCPCS: 36415; 85025; 86703; 86762; 86780; 86787; 86803; 87086; 87088; 87340

== ENCOUNTER → 2023-01-27 | Outpatient (CLI) | payer BC, SELFPAY ==
[2023-01-27 10:28] LABS: Glucose Challenge Gest 1H 50g 152 mg/dL (70-140)
== END | disposition home or self-care (01) ==
PROVIDERS: PCP Nurse Practitioner Primary Care; Visit Provider Student in an Organized Health Care Education/Training Program
DX: Z34.81 Encounter for supervision of other normal pregnancy, first trimester (principal)
CPT/HCPCS: 36415; 82950

== ENCOUNTER → 2023-02-04 | Outpatient (CLI) | payer BC, SELFPAY ==
[2023-02-04 09:29] LABS: Glucose GTT-Gestation. Fasting 86 mg/dL (<105)
[2023-02-04 10:59] LABS: Glucose GTT-Gestational 1 Hr 158 mg/dL (<190)
[2023-02-04 12:27] LABS: Glucose GTT-Gestational 2 Hr 118 mg/dL (<165)
[2023-02-04 12:27] LABS: Glucose GTT-Gestational 3 Hr 81 L (<145)
== END | disposition home or self-care (01) ==
LOC: WOBLAB 08:44
PROVIDERS: PCP Nurse Practitioner Primary Care; Visit Provider Student in an Organized Health Care Education/Training Program
DX: Z34.81 Encounter for supervision of other normal pregnancy, first trimester (principal)
CPT/HCPCS: 36415; 82951; 82952

== ENCOUNTER → 2023-05-01 | Outpatient (CLI) | payer BC, SELFPAY ==
[2023-05-01 10:17] LABS: Glucose GTT-Gestation. Fasting 71 mg/dL (<105)
[2023-05-01 10:18] LABS: Glucose GTT-Gestational 1 Hr 157 mg/dL (<190)
[2023-05-01 11:49] LABS: Glucose GTT-Gestational 2 Hr 131 mg/dL (<165)
[2023-05-01 13:32] LABS: Glucose GTT-Gestational 3 Hr 88 L (<145)
== END | disposition home or self-care (01) ==
PROVIDERS: PCP Nurse Practitioner Primary Care; Visit Provider Student in an Organized Health Care Education/Training Program
DX: Z34.83 Encounter for supervision of other normal pregnancy, third trimester (principal)
CPT/HCPCS: 36415; 82951; 82952

== ENCOUNTER 2023-08-19 23:02 | Inpatient (IN) | payer BC, SELFPAY ==
[2023-08-19 22:46] VITALS: BP 112/78; PULSE 77; BMI 38.7
[2023-08-19 22:47] VITALS: TEMP 36.8
[2023-08-19 23:28] LABS: Absolute Lymphocyte Count 1.96 X10^3/uL (0.83-4.51); Basophil# 0.03 X10^3/uL; Basophil% 0.3 % (0-1); Eosinophil# 0.08 X10^3/uL; Eosinophils% 0.9 % (0-5); Hematocrit 40.4 % (37-47); Hemoglobin 12.8 g/dL (12.0-15.0); Lymphocyte # 1.96 X10^3/ul (0.83-4.51); Lymphocyte % 22.7 % (19-41); Mean Corp Hgb Conc 31.7 g/dL (32-36); Mean Corpuscular Hgb 29.8 pg (27.0-32.0); Mean Platelet Vol. 10.3 fl (6.2-12.0); Monocyte# 0.53 X10^3/uL; Monocyte% 6.1 % (0-10); NRBC Flagged by Analyzer 0 % (0-5); Neutrophil # 5.99 X10^3/uL (2.7-7.7); Neutrophil % 69.3 % (47-70); Platelet Count 236 K/mm3 (150-450); RBC Distribution Width CV 13.5 % (11.6-14.6); RBC Distribution Width SD 46.2 fl (35.1-43.9); White Blood Count 8.7 K/mm3 (4.4-11.0)
[2023-08-19 23:50] LABS: ROM Internal Control Test YES-OK TO RESULT pt. (Internal QC)
[2023-08-19 23:51] LABS: ROM Patient Test POSITIVE (Negative); Record Kit Lot#, ROM+ K1409
[2023-08-20] VITALS (43 sets, daily range): BP systolic 85–128; BP diastolic 46–73; PULSE 64–179; RESP 14–18; TEMP 36.2–36.9; O2SAT 98–100
[2023-08-20] MEDS: Lactated Ringers 1,000 ML 50 ML IV (00:05)
[2023-08-20] MEDS: LACTATED RINGERS 500 ML 999 ML IV ×2 (00:05→00:58)
[2023-08-20 00:53] LABS: Syphilis Antibodies Non-reactive
[2023-08-20] MEDS: fentaNYL-bupivacaine (epidural) 100 ML BAG EPIDURAL (02:25)
[2023-08-20] MEDS: Lactated Ringers 1,000 ML 200 ML IV (04:51)
--- NOTE | 2023-08-20 05:47 | PCM.HP.OB ---
HPI - General General Date of Admission: 08/19/23 Date of Service: 08/20/23 Chief Complaint: labor HPI Narrative HALEY HICKS, is a 33 F who presents in labor. uncomplicated to date Maternal Data Information Final WU: 08/14/23 Gestational age: 40 6/7 PFSH [facility] Medical History (Updated 08/20/23 @ 05:[address] Ashley Amezquita MD) Anxiety depression Thyroid disorder Home Medications ascorbic acid (vitamin C) 500 mg tablet (Vitamin C) 500 mg PO DAILY supplement 05/06/21 [History Last Taken 05/05/21] ergocalciferol (vitamin D2) 25,000 unit capsule 5,000 unit PO DAILY supplement 05/06/21 [History Last Taken 05/05/21] levothyroxine 50 mcg tablet 50 mcg PO DAILY hypothyroid 05/06/21 [History Last Taken 05/06/21] loratadine 5 mg-pseudoephedrine ER 120 mg tablet,extended release,12hr (Claritin-D 12 Hour) 2 tab PO Q12H 1 05/06/21 [History Last Taken 05/05/21] vits,calcium 21-iron fum 14 mg iron-folic acid 400 mcg tablet ( Complete) tab PO DAILY supplement 05/06/21 [History Last Taken 05/05/21] zinc 50 mg capsule 50 mg PO DAILY supplement 05/06/21 [History Last Taken 05/05/21] ibuprofen 600 mg tablet 600 mg PO Q8H PRN PRN Pain #30 tabs 05/08/21 [Rx Last Taken Unknown] Allergy/AdvReac Type Severity Reaction Status Date / Time cetirizine [From [facility]] Allergy Hives Verified 05/06/21 06:43 Surgical History History of surgery Social History Smoking Status: Never smoker History Elective abortions Hx Para 1 Spontaneous abortions Hx # Term Pregnancies Ectopic pregnancies Hx # Pregnancies Multiple births # of living children ROS Constitutional Constitutional: Denies fatigue, fever(s) or malaise Eyes Eyes: Denies change in vision ENT HEENT: Denies dizziness or headache(s) Cardiovascular Cardiovascular: Denies chest pain, dyspnea or lightheadedness Respiratory/Chest Respiratory/Chest: Denies cough or dyspnea Gastrointestinal Gastrointestinal: Denies change in bowel habits Genitourinary Genitourinary: Denies burning urination or genital lesions Integumentary Integumentary: Denies rash Neurologic Neurologic: Denies confusion, dizziness, headache(s), numbness or weakness Vital Signs Vital Signs Vital Signs: 08/19/23 22:46 08/19/23 22:46 08/19/23 22:47 Temperature Temperature Source Temporal Pulse Rate 77 Blood Pressure 112/78 BP Systolic 112 BP Diastolic 78 Pulse Ox 08/19/23 22:47 08/20/23 00:05 08/20/23 00:05 Temperature 98.2 F Temperature Source Pulse Rate 75 Blood Pressure 119/70 BP Systolic 119 BP Diastolic 70 Pulse Ox 08/20/23 00:08 08/20/23 00:08 08/20/23 01:48 Temperature 97.9 F Temperature Source Temporal Pulse Rate 93 Blood Pressure BP Systolic BP Diastolic Pulse Ox 08/20/23 01:48 08/20/23 01:53 08/20/23 01:53 Temperature Temperature Source Pulse Rate 84 Blood Pressure BP Systolic BP Diastolic Pulse Ox 100 99 08/20/23 01:58 08/20/23 01:58 08/20/23 02:03 Temperature Temperature Source Pulse Rate 99 89 Blood Pressure BP Systolic BP Diastolic Pulse Ox 100 08/20/23 02:03 08/20/23 02:08 08/20/23 02:08 Temperature Temperature Source Pulse Rate 82 Blood Pressure BP Systolic BP Diastolic Pulse Ox 100 100 08/20/23 02:11 08/20/23 02:11 08/20/23 02:13 Temperature Temperature Source Pulse Rate 83 82 Blood Pressure 128/71 H BP Systolic 128 BP Diastolic 71 Pulse Ox 08/20/23 02:13 08/20/23 02:15 08/20/23 02:15 Temperature Temperature Source Pulse Rate 86 Blood Pressure 119/67 BP Systolic 119 BP Diastolic 67 Pulse Ox 99 08/20/23 02:20 08/20/23 02:20 08/20/23 02:20 Temperature Temperature Source Pulse Rate 86 86 Blood Pressure 114/66 BP Systolic 114 BP Diastolic 66 Pulse Ox 08/20/23 02:20 08/20/23 02:15 08/20/23 02:15 Temperature 98.2 F Temperature Source Temporal Pulse Rate Blood Pressure BP Systolic BP Diastolic Pulse Ox 98 08/20/23 02:25 08/20/23 02:25 08/20/23 02:25 Temperature Temperature Source Pulse Rate 93 78 Blood Pressure 115/69 BP Systolic 115 BP Diastolic 69 Pulse Ox 08/20/23 02:25 08/20/23 02:30 08/20/23 02:30 Temperature Temperature Source Pulse Rate 88 Blood Pressure BP Systolic BP Diastolic Pulse Ox 98 98 08/20/23 02:31 08/20/23 02:31 08/20/23 02:34 Temperature Temperature Source Pulse Rate 85 Blood Pressure 119/70 121/66 H BP Systolic 119 121 BP Diastolic 70 66 Pulse Ox 08/20/23 02:34 08/20/23 02:35 08/20/23 02:35 Temperature Temperature Source Pulse Rate 89 79 Blood Pressure BP Systolic BP Diastolic Pulse Ox 99 08/20/23 02:40 08/20/23 02:40 08/20/23 02:45 Temperature Temperature Source Pulse Rate 179 H Blood Pressure 121/70 H 117/67 BP Systolic 121 117 BP Diastolic 70 67 Pulse Ox 08/20/23 02:45 08/20/23 02:50 08/20/23 02:50 Temperature Temperature Source Pulse Rate 98 65 Blood Pressure 116/67 BP Systolic 116 BP Diastolic 67 Pulse Ox 08/20/23 02:56 08/20/23 02:56 08/20/23 02:56 Temperature Temperature Source Pulse Rate 80 Blood Pressure 85/46 L 94/56 L BP Systolic 85 94 BP Diastolic 46 56 Pulse Ox 08/20/23 02:56 08/20/23 03:00 08/20/23 03:00 Temperature Temperature Source Pulse Rate 87 71 Blood Pressure 96/55 L BP Systolic 96 BP Diastolic 55 Pulse Ox 08/20/23 03:05 08/20/23 03:05 08/20/23 03:08 Temperature Temperature Source Temporal Pulse Rate 77 Blood Pressure 110/68 BP Systolic 110 BP Diastolic 68 Pulse Ox 08/20/23 03:08 08/20/23 03:59 08/20/23 04:01 Temperature 97.1 F L Temperature Source Temporal Pulse Rate Blood Pressure 112/59 L BP Systolic 112 BP Diastolic 59 Pulse Ox 08/20/23 04:01 08/20/23 03:59 08/20/23 05:18 Temperature 97.6 F L Temperature Source Pulse Rate 93 111 H Blood Pressure BP Systolic BP Diastolic Pulse Ox 08/20/23 05:18 08/20/23 05:23 08/20/23 05:23 Temperature Temperature Source Pulse Rate 94 Blood Pressure BP Systolic BP Diastolic Pulse Ox 100 100 08/20/23 05:28 08/20/23 05:28 08/20/23 05:33 Temperature Temperature Source Pulse Rate 118 H 117 H Blood Pressure BP Systolic BP Diastolic Pulse Ox 100 08/20/23 05:33 08/20/23 05:38 08/20/23 05:38 Temperature Temperature Source Pulse Rate 116 H Blood Pressure BP Systolic BP Diastolic Pulse Ox 100 100 Weight Weight: 99.337 kg Body Mass Index (BMI) 38.7 Physical Exam Const alert and no apparent distress General Appearance: cooperative HEENT normocephalic Resp normal respiratory effort Cardio regular rate GI soft to palpation GI Narrative: gravid, nontender, appropriate for gestational age Extremity no calf tenderness General Extremity: edema Skin no wounds Rashes: No rashes noted Psych activity/motor behavior normal Labs Labs Labs: Blood Type A POSITIVE Antibody Screen NEGATIVE Hct 40.4 % (37-47) Hgb 12.8 g/dL (12.0-15.0) Syphilis Total Ab Non-reactive VZV IgG Antibody 3961 index (Immune >165) Rubella IgG Antibody Reactive (Nonreactive) Hep Bs Antigen Non-Reactive (Nonreactive) Hepatitis C Antibody Non-Reactive (Nonreactive) Chlamydia DNA (KEYONNA) Negative (Negative) N.gonorrhoeae DNA (KEYONNA) Negative (Negative) HIV 1&2 Antibody Non-Reactive (Nonreactive) Glucose 1 Hr 50 gm 152 mg/dL (70-140) H Gest Glucose Tolerance MG/DL Rhogam given: No Miscellaneous Test Assessment & Plan (1) 40 weeks gestation of : PLAN: Spontaneousl labor. Estimated weight is less than 4500 g and pelvic is clinically adequate to expect vaginal delivery. May have routine pain control measures prn
[2023-08-20] MEDS: Oxytocin 10 UNITS/ML Vial IM (06:15)
[2023-08-20] MEDS: Oxytocin 15 Units/NS 250ml 15 UNITS/250 ML IV.SOLN 83 UNITS IV (06:20)
--- NOTE | 2023-08-20 06:20 | EX.PCM.OBRPT ---
Assessment & Plan (1) (spontaneous vaginal delivery): COMMENT: day #2 Maternal Data Information Final WU: 08/14/23 Gestational age: 40 6/7 Vaginal Delivery Maternal Presentation Maternal Presentation: Active Labor and Spontaneous Rupture of Membranes Operative Information Date of Procedure: 08/20/23 Pre-Operative Diagnosis: Post-Operative Diagnosis: Surgery / Procedure Performed: Spontaneous Vaginal Delivery Type of Anesthesia: Epidural Special Medications: none Drain: - (none) Estimated Blood Loss: 200 Fluids Replaced: 200 Time of Delivery: 06:09 Findings Description of Procedure: A vigorous female infant was delivered JOSÉ over a second-degree perineal laceration. There was a tight nuchal cord and when I attempted deliver through the bolus. It was quickly clamped and the was quickly delivered. The remainder the infant was delivered with maternal pushing and gentle traction only in less than 15 seconds. The cord was quickly clamped on the . The Pitocin infusion was initiated for active management of the third stage. The infant was attended to by the waiting nursing staff. The placenta was delivered spontaneously and intact. The cervix and vagina were intact. The second-degree perineal laceration was repaired with 3-0 Vicryl suture in a running standard fashion. Sponge and needle counts were correct. A vaginal sweep was completed by me. Presentation: JOSÉ Amniotic Membrane Rupture Type: Spontaneous Amniotic Fluid Description: Clear Placental Delivery Description: Spontaneous Placenta Disposition: [facility] Cord Vessel Description: 3 Vessels Cord Entanglement: Around neck x 1, tight Nuchal Cord Compression: With compression Cord Gases: ABG and VBG A Gender: Female (Bharati) (1 minute): 8 (5 minute): 9 Delayed Cord Clamping: No Post Vaginal Delivery Medications Given After Delivery: IV Pitocin Episiotomy Description: None Laceration: 2nd degree Complication Complications: None
[2023-08-20] MEDS: Ibuprofen 600 MG Tablet PO ×2 (13:49→19:59)
[2023-08-20] MEDS: Benzocaine/Lanolin/Aloe Vera 1 SPRAY EACH TOPICAL (20:01)
[2023-08-21 00:55] VITALS: BP 114/73; PULSE 68; RESP 18; TEMP 36.4
[2023-08-21 05:00] VITALS: BP 110/68; PULSE 85; RESP 16; TEMP 36.2
[2023-08-21] MEDS: Ibuprofen 600 MG Tablet PO (06:47)
[2023-08-21 08:48] VITALS: BP 111/66; PULSE 75; RESP 16; TEMP 36.1; O2SAT 98
[2023-08-21] MEDS: Acetaminophen 500 MG Tablet 1000 MG PO (09:11)
--- NOTE | 2023-08-21 11:36 | PN.OBGYN_ITS ---
Subjective Subjective Pain well controlled. Average lochia Objective Data Objective Data Vital Signs: Vital Signs Temp Pulse Resp BP Pulse Ox O2 Del Method 97.0 F L 75 16 111/66 98 Room Air 08/21/23 08:48 08/21/23 08:48 08/21/23 08:48 08/21/23 08:48 08/21/23 08:48 08/21/23 08:48 Oxygen Delivery Method Room Air Weight: 99.337 kg Body Mass Index (BMI) 38.7 Intake & Output: Intake and Output for Last 24 Hours 08/19/23 08/20/23 08/21/23 23:59 23:59 23:59 Intake Total 2381.66 / 2381.66 Output Total 2600 / 2600 Balance -218.34 / -218.34 Lab / Micro Data 08/19/23 23:13 Physical Exam Const alert and no apparent distress Narrative: Fundus firm, below umbilicus. Assessment & Plan (1) (spontaneous vaginal delivery): COMMENT: day #2 PLAN: day #1 status post vaginal delivery. Working on breast- feeding. is doing well. weight was 8 pounds 10 ounces. Desires discharge home
--- NOTE | 2023-08-21 11:37 | DCINST_ITS ---
Discharge Instructions Diet Discharge Diet: No restrictions Activity Discharge Activity: May Shower May resume sexual activity in: 6 weeks Dressing / Incision Call your doctor if your incision/area has: Continuous Slow Oozing, Sudden Increased Bleeding, Foul Smelling Discharge and Swelling at the incision site Call your doctor if you observe: Fever of 101 or Higher and Inability to urinate Follow Up Care Please Follow Up With: Ashley Amezquita MD When: Follow up with our office in 1-2 and 6 weeks or as needed. [phone] Test Results: Test results from this visit will be discussed in further detail at your follow- up appointment, if applicable. Discharge Plan Admission Admit Date/Time: 08/19/23 23:02 Primary Reason for Your Visit: Vaginal delivery Attending Provider: Ashley Amezquita Primary Care Provider: Candelaria Petit NP Discharge Orders/Prescriptions Prescriptions: Continued levothyroxine 50 mcg Tablet 50 mcg PO DAILY Complete 14 mg iron- 400 mcg Tablet PO DAILY ascorbic acid (vitamin C) [Vitamin C] 500 mg Tablet 500 mg PO DAILY ergocalciferol (vitamin D2) 25,000 unit Capsule 5,000 unit PO DAILY zinc 50 mg Capsule 50 mg PO DAILY Claritin-D 12 Hour 5-120 mg Tablet Extended Release 12 Hr 2 tab PO Q12H ibuprofen 600 mg Tablet 600 mg PO Q8H PRN PRN (Reason: Pain) Qty: 30 0RF Referrals / Follow Up: Candelaria Petit NP, GENERAL INTERNIST AND PHYSICIAN LEADER-C [Primary Care Provider] - Disposition Disposition (needs filled in before D/C Order can be placed): Home, Self Care
--- NOTE | 2023-08-21 11:59 | CASEMGMT ---
Social Work Assessment Labor and Delivery Unit Patient Address:[address] [place] [address]. [address] [place] [address] Phone number: [phone] Date of Referral: 08/19/23 Time of Referral:? 2330 Referred By: Margarita Jimenez Date of Intervention: ??08/21/23 Time of Intervention:944? Reason for Referral:? Father is an alcoholic, mother states yes to glass of wine once a week Sw completed chart review and acknowledges social work consult entered. Sw presented to bedside and introduced self to mother of baby (MOB- Meli) and father of baby (FOB- Francisco). Sw explained reason for sw involvement. Sw completed psychosocial assessment and asked FOB to step out of the room momentarily so that MOB could complete [place] Depression Scale. FOB did so respectfully and willingly without issue. History obtained from: medical records, MOB and FOB ??? Household composition: Currently residing in the home is parents, their older child (Hank Herbert, 2 years old) and now baby girl Patient's parent/guardian status:? Parents state that they met each other in the 8th grade, and started dating in the 9th grade. Parents have been together ever since then and have been now for 8 years. MOB denies any concerns of domestic violence or intimate partner violence. ? Medical History: MOB is 3, para 1- now 2 following of baby girl. MOB received routine care during with [facility] and then transferred care to [facility]. MOB delivered baby via vaginal delivery at 40 weeks gestation. Baby girl, named Bharati Carroll, was born weighing 8lb 10oz and her apgars were 9 and 9 at one and five minutes of life respectfully. MOB states that she is breast feeding and it is going well. Educational Status:? Both parents are high school graduates. Parents deny any learning, reading or comprehension concerns. Financial Status: MOB is a stay at home MOB. She states that for extra money for works for a [employer]. FOB is a mechanical intern at [employer]. FOB states that he is able to take some time off of work now that baby has been born. Supplies: Parents state that they have obtained all necessary baby items including: car seat, safe sleep space, clothes, diapers, wipes and a breast pump. Childcare/Caregiver(s):? MOB will be the primary caregiver to baby, along with FOSilvano when he is not working. Parents state that paternal grandparents will also help with childcare when necessary. Transportation:??Both parents have their drivers license and reliable transportation. No transportation barriers at this time. Programs/Agencies Involved: Parents are not connected to any financial community resources at this time as they are over income. ??? Children Services/Legal Issues:???No history of involvement, sw did make referral on this date to [facility] due to maternal substance use during . Sw spoke to hotline screener: [place]. Behavioral Health Issues: ??Mental Health History:?GATITO states that he has underlying anxiety, but has never been diagnosed. GATITO became tearful and stated that he has been anxious during this process. When talking about this more, GATITO states that he is nervous about raising another baby, and having two children now. GATITO stated that he is also worried about their son will adapt to having a little sister/ baby. HADLEY stated that she has history of anxiety and depression. HADLEY stated that her symptoms mostly surrounded the struggles she faced with breast feeding. HADLEY stated that her breast feeding journey with her son did not go well and she felt a lot of guilt that she was not able to breast feed him when it is something that she should have been able to do as a mother. Sw processed this thought process with HADLEY as well as the guilt that she discussed. HADLEY stated that she was put on citalopram right before she found out that she was and then she discontinued use due to . HADLEY states that at this time her journey is starting off much better and much more successful than with her last baby. HADLEY completed [place] Depression Scale and her score was a 3. Sw provided education and feed back. Sw encouraged HADLEY to get connected to counseling during this period. ?? Substance Use History:?HADLEY states that prior to she was drinking a glass of wine every night. HADLEY states that she works for a [employer] and wine is something that she enjoys for herself. HADLEY stated that once she learned of her she stopped drinking throughout the first two trimesters, and then drank one glass of wine one time a week during her third trimester. HADLEY stated that she would drink at social gatherings when her family would go to a friends house on Gage nights to watch high school football games. ? Family History: GATITO states that he does not have family with any substance use issues aside from some cousins who smoke marijuana. MOB stated that her father is a former alcoholic as well as her paternal grandma who has schizophrenia and also struggles with alcoholism. Drug Screens: No drug screens observed in chart review. ?? Family/Social Stressors:? Parents express stress and anxiety over having another baby. Although they are excited and was desired, they are approriately expressing concern over how this will change the dynamics of their family along with the transition that their two year old will go through. Support Systems: Parents have adequate natural suppports in place. Depression/Shaken Baby/Safe Sleeping:? Sw discussed signs and symptoms of baby blues and depression/ anxiety with parents. Sw encouraged MOB to get connected to community mental health support/ counseling during her period. MOB expressed understanding. Sw also encouraged MOB to potentially revisit the option of getting back on medication. Sw encouraged MOB to use appropriate coping skills and not use alcohol to help with symptoms of anxiety. MOB expressed understanding. Sw educated parents on shaken baby prevention and ABCs of safe sleep. Parents expressed understanding. ASSESSMENT:? MOB and baby admitted following labor and delivery. Parents very talkative and open regarding their mental health history and substance use (alcohol). MOB receptive to sw involvement and support, engaged well during assessment. MOB receptive to support, education and literature provided. PLAN:? MOB and baby to be discharged when medically ready. ?No other services requested or indicated. Lex Manzo, [employer], PRIVATE WEALTH ADVISOR
== END 2023-08-21 12:45 | disposition home or self-care (01) | DRG 807 ==
LOC: WPOUT 23:02 → WP 23:02
PROVIDERS: Advanced Practice Midwife; Admitting Provider Obstetrics & Gynecology; PCP Nurse Practitioner Primary Care; Referring Provider Obstetrics & Gynecology; Visit Provider Obstetrics & Gynecology
DX: O70.1 Second degree perineal laceration during delivery (principal); Z37.0 Single live birth; O69.2XX0 Labor and delivery complicated by other cord entanglement, with compression, not applicable or unspecified; Z3A.40 40 weeks gestation of pregnancy
CPT/HCPCS: 59025; 59050; 84112; 85025; 86780; 86850; 86900; 86901; 99221; J7120; G0378

== ENCOUNTER 2025-04-05 15:00 | Outpatient (RCR) | payer BC, SELFPAY ==
--- NOTE | 2025-03-28 18:41 | HP.PTEVAL_ITS ---
Patient's Visit Information Visit Information Visit Information: HALEY HICKS is a 35 year old F referred to Physical Therapy by MANDY Boyer with a diagnosis of vertigp. Date of Evaluation: 03/28/25 Physical Therapist: Dale Patiño, CTT, OCS, CSCS Visit Plan Frequency: 1x/Week Duration: 4-6 Weeks Plan: weekly x 2-4 for positional checks and monitor vestibular treated with R marva today but surprisingly little nystagmus with HD. Educated patient on treatment check positional each session and pattern to dizzyness. Subjective Subjective: Vertigo since July. Chiropractor says it is due to neck curvature. Vertigo is spinning when she is on back or rotating side to side for a 15 seconds. Usually fine after that. Sometimes gets nauseous. Daily , usually feels normal on a good day. bending over in shower may make it happen doing hair. Would be OK if did not move head. 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 Sleeping OK, may toss adn turn. Objective Objective: romberg 30 sec eo adn ec cervical AROM WFL but hesitant to look up UE AROM WFL, no myotomal problems, sensation WFL to gross light touch B. - L HD slight + r HD for quick upward beat and off feeling , slightly better after marva. Oculomotor: no nystagmus with gaze or head shake Normal purusit and saccades adn VOR without symptoms. - skew eye deviation - ocular tilt - head thrust. Balance/Special Test Scores Functional Gait Assessment Score: 29 % Disability: 3.3400 Dizziness Score: 36 Goals Goal 1:: abolish dizzyness x 5 days Goal Time Frame: 4-6 Weeks Goal 2:: pt feel 100% back to normal Goal Time Frame: 4-6 Weeks Goal 3:: sleep without interruption Goal Time Frame: 4-6 Weeks Goal 4:: < 10 DHI Goal Time Frame: 4-6 Weeks Rehabilitation Potential Physical Therapy Diagnosis: Describes positional vertigo perfectly and only slight + R test today surprisingly. Other vestibular negative. Rehabilitation Potential: Fair Anticipated Interventions Patient/Client Instruction: Educate patient on: Condition and Plan of Care For the Purpose of:: To decrease pain, To increase ROM, To improve nutrient delivery to tissue and To increase tolerance to activity/condition/position Comment: posoitional For the Purpose of:: To increase tolerance to activity/condition/position Text: Thank you for the opportunity to evaluate your patient. For Medicare and Medicare HMO plans, please review the plan of care and approve it. It will need to be FAXED BACK to us at [phone] for Medicare purposes. For Medicare only, by signing this I certify the plan of care. Please let me know if there are questions or concerns regarding this plan of care. Physician Signature: Date:
--- NOTE | 2025-06-06 10:00 | HP.PT.NRP ---
Patient Information Patient Information: HALEY HICKS was seen in my office for initial evaluation on 03/28/25. The following Plan of Care was established for this patient: POC Established Initial Frequency: 1x/Week Initial Duration: 4-6 Weeks Anticipated Interventions Patient/Client Instruction: Educate patient on: Condition and Plan of Care For the Purpose of:: To decrease pain, To increase ROM, To improve nutrient delivery to tissue and To increase tolerance to activity/condition/position For the Purpose of:: To increase tolerance to activity/condition/position Last Seen Last Seen: This patient was last seen in our office 04/05/25. Pertinent comments regarding their Physical therapy will appear below: Pt seen two visits of positional treatment and was to f/u a week later but cancel if felt 100% better. She did not attend that visit and it has audrey over 2 months. i will discontinue her from my care At this point I will be discontinuing this patient from physical therapy. I would be happy to see this patient again in the future if found appropriate by the physician. Thank you! Dale Patiño, DPT, OCS, CSCS Balance/Gait/Functional tests Balance/Special Test Scores Functional Gait Assessment Score: 29 % Disability: 3.3400 Dizziness Score: 36
== END 2025-04-05 19:00 | disposition home or self-care (01) ==
LOC: PT 15:00
PROVIDERS: PCP Nurse Practitioner Primary Care; Referring Provider Nurse Practitioner Primary Care; Visit Provider Nurse Practitioner Primary Care
DX: R42 Dizziness and giddiness (principal)
CPT/HCPCS: 97161; 97530